=== PATIENT | female | born 1960 | race Caucasian/White ===

== ENCOUNTER 2017-09-20 15:31 | Emergency (ER) | payer OTHER ==
[~2017-09-20] VITALS: Ht 162.6 cm; Wt 68.0 kg
--- NOTE | 2017-09-20 15:43 | ER.PDOC ---
General Chief Complaint: Requesting Medical Care Stated Complaint: KIDNEY PAIN Time seen by MD: 15:43 Source: patient Exam Limitations: no limitations History of Present Illness Allergies: Coded Allergies: No Known Allergies (Unverified , 09/20/17) Home Meds No Active Prescriptions or Reported Meds Physical Exam General Appearance: No Apparent Distress, WD/WN EENT: eyes nml inspection, nml ENT inspection, pharynx nml Neck: nml inspection, non-tender Cardiovascular/Respiratory: Regular Rate, Rhythm, No M/R/G, Normal Peripheral Pulses, No JVD, Normal Breath Sounds, No Respiratory Distress Abdomen: Normal Bowel Sounds, Non Tender, Soft, No Organomegaly, No Pulsatile Mass Back: nml inspection Extremities: Normal Range of Motion, Non-Tender, Normal Inspection, No Pedal Edema, No Calf Tenderness, Normal Capillary Refill 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, No Motor/Sensory Deficits, Alert, Normal Mood/Affect, Oriented x 3 Skin: Normal Color, Warm/Dry Lymphatic: No Adenopathy Results/Orders Results/Orders Laboratory Tests Test 09/20/17 00:00 09/20/17 16:15 09/20/17 16:20 Urine Collection Type UNKNOWN Urine Color YELLOW (YELLOW) Urine Appearance SLIGHTLY HAZY (CLEAR) Urine Bilirubin NEGATIVE MG/DL (NEGATIVE) Urine Ketones NEGATIVE (NEGATIVE) Urine Specific [place] 1.020 (1.005-1.035) Urine pH 6 (5.0-6.0) Urine Protein 15 mg/dL (NEGATIVE) Urine Urobilinogen NORMAL (NEGATIVE) Urine Nitrate NEGATIVE (NEGATIVE) Urine Leukocyte Esterase 500/uL 2+ (NEGATIVE) Urine Blood 50 2+ (NEGATIVE) Urine Glucose NORMAL (NEGATIVE) Urine Comment Sodium Level 144 mmol/L (132-145) Potassium Level 4.1 mmol/L (3.6-5.2) Chloride Level 109.0 mmol/L (96-109) Carbon Dioxide Level 26.5 mmol/L (20.0-32) Anion Gap 12.6 Blood Urea Nitrogen 13 mg/dL (7-18) Creatinine 0.82 mg/dL (0.59-1.40) Estimated GFR () 87.3 (>/=60) BUN/Creatinine Ratio 15.0 Glucose Level 113 mg/dL (70-110) Calcium Level 9.6 mg/dL (8.4-10.5) Total Bilirubin 0.3 mg/dL (0.2-1.0) Aspartate Amino Transf (AST/SGOT) 8 U/L (0-35) Alanine Aminotransferase (ALT/SGPT) 23 U/L (12-78) Alkaline Phosphatase 163 U/L (50-136) Total Protein 7.6 g/dL (6.4-8.2) Albumin 3.8 g/dL (3.4-5.0) Globulin 3.8 Amylase Level 44 U/L (25-115) Lipase 170 U/L (114-286) White Blood Count 11.1 10^3/uL (4.5-11.0) Red Blood Count 5.73 10^6/uL (4.00-5.20) Hemoglobin 16.4 g/dL (12.0-15.0) Hematocrit 48.1 % (36.0-46.0) Mean Corpuscular Volume 83.9 fL (78-100) Mean Corpuscular Hemoglobin 28.6 pg (26-34) Mean Corpuscular Hemoglobin Concent 34.1 g/dL (33-37) Red Cell Distribution Width 13.5 % (11.5-14.5) Platelet Count 256 10^3/uL (150-400) Mean Platelet Volume 9.8 fL (7.8-11.0) Neutrophils (%) (Auto) 61.1 % (41.0-85.0) Lymphocytes (%) (Auto) 30.7 % (24.0-44.0) Monocytes (%) (Auto) 6.3 % (5.0-12.0) Neutrophils # (Auto) 6.8 10^3/uL (1.8-7.7) Lymphocytes # (Auto) 3.4 10^3/uL (1.0-4.8) Monocytes # (Auto) 0.7 10^3/uL (0.3-0.8) Absolute Immature Granulocyte (auto 0.03 10^3 u/L (0-2) Eosinophils % 1.4 % (0.0-5.0) Basophils % 0.2 % (0.0-0.2) Basophils # 0.0 10^3/uL (0.0-0.1) Eosinophil Count 0.2 10^3/uL (0.0-0.2) Percent Immature Gran (Cell Imm) 0.30 % (0.00-0.50) Helicobacter pylori Screen POSITIVE (NEGATIVE) Progress Progress Discussed with [facility], Dr. Prescott is accepting Physician for ED to ED Transfer. EKG/XRAY/CT/US CT Comments: Hydronephrosis, Nephrolithiasis Departure Time of Disposition: 16:50 Disposition: 07 AGAINST MEDICAL ADVICE (Patient advised need to transfer [facility]. Patient aware, and refuses transport and states that she is leaving. Advised that her condition is serious, and could result in , and or organ failure. States she is going to drive herself to [place]. I advised against this as her condition could worsen in route and put herself or others in danger. ) Impression: Primary Impression: UTI (urinary tract infection) Additional Impressions: Hydronephrosis concurrent with and due to calculi of kidney and ureter Fever Condition: Against Medical Advice Referrals: PCP,UNKNOWN (PCP) PRIMARY CARE PROVIDER Scripts No Active Prescriptions or Reported Meds Duration or Time Spent with Pa: 45 Problem Qualifiers Primary Impression: UTI (urinary tract infection) Hematuria presence: with hematuria Additional Impressions: Fever Fever type: unspecified Qualified Codes: R50.9 - Fever, unspecified DAVE BELTRÁN DO September 20, 2017 15:43
[2017-09-20 15:49] VITALS: BP 159/92
--- NOTE | 2017-09-20 16:09 | NUR ---
RAD PT OUT TO CT
[2017-09-20 16:15] LABS: BILIRUBIN,URINE NEGATIVE (NEGATIVE); UROBILINOGEN,URINE NORMAL (NEGATIVE)
[2017-09-20 16:22] LABS: UA COLOR YELLOW (YELLOW)
[2017-09-20 16:23] LABS: APPEARANCE,URINE SLIGHTLY HAZY (CLEAR)
--- NOTE | 2017-09-20 16:25 | NUR ---
CT PT BACK IN ROOM
--- NOTE | 2017-09-20 16:28 | DIREP ---
PROCEDURE:CT ABDOMEN/PELVIS W/O CONTRAST COMPARISON:None. INDICATIONS:urinary symptoms, pain, hx of kidney stones TECHNIQUE:Axial images were created through the abdomen and pelvis without intravenous contrast material. No oral contrast was administered. Sagittal and coronal reconstructions were performed from source images. FINDINGS: LUNG BASES:Normal. No visible pulmonary or pleural disease. LIVER:Normal. No significant liver lesions are identified. BILIARY:The gallbladder is surgically absent. There is no biliary ductal dilatation. PANCREAS:Normal. No lesion, fluid collection, ductal dilatation, or atrophy. SPLEEN:Normal. No enlargement or focal lesion. ADRENALS:Normal. No mass or enlargement. URINARY TRACT:Large calculi on the right measuring up to 21 mm. Smaller calculi on the left. There is moderate right hydronephrosis and hydroureter due to calculi in the right proximal ureter measuring up to 6 mm. AORTA/VASCULAR:There are aortic atherosclerotic calcifications present. No aneurysm. RETROPERITONEUM:Normal. No mass or adenopathy. BOWEL/MESENTERY:Normal, except for mild retained stool in the colon. There is no intestinal obstruction, free fluid, free air or mesenteric inflammatory changes. ABDOMINAL WALL:Normal. No mass or hernia. PELVIC ORGANS:Normal. No visible mass. Pelvic organs appropriate for patient age. BONES:Normal for age. No bony lesion or acute fracture. OTHER:The appendix is normal. Phleboliths in the pelvis. CONCLUSION:Moderate right hydronephrosis and right hydroureter due to calculi in the right proximal ureter measuring up to 6 mm. Additional large calculi in the right kidney measure up to 21 mm. Smaller calculi on the left measure 3-4 mm. Dictated by: Anupam Avila M.D. on 09/20/2017 at 04:21 PM
[2017-09-20 16:29] LABS: BASOPHIL % 0.2 % (0.0-0.2); EOSINOPHIL # 0.2 10^3/uL (0.0-0.2); EOSINOPHIL % 1.4 % (0.0-5.0); HEMOGLOBIN 16.4 g/dL (12.0-15.0); LYMPHOCYTES # 3.4 10^3/uL (1.0-4.8); LYMPHOCYTES % 30.7 % (24.0-44.0); MEAN CELL HGB 28.6 pg (26-34); MEAN CELL HGB CONCENTRATION 34.1 g/dL (33-37); MEAN CORP VOLUME 83.9 fL (78-100); MEAN PLATELET VOLUME 9.8 fL (7.8-11.0); MONOCYTES # 0.7 10^3/uL (0.3-0.8); MONOCYTES % 6.3 % (5.0-12.0); NEUTROPHIL # 6.8 10^3/uL (1.8-7.7); NEUTROPHILS % 61.1 % (41.0-85.0); RED CELL DISTRIBUTION WIDTH 13.5 % (11.5-14.5); WHITE BLOOD CELL 11.1 10^3/uL (4.5-11.0)
[2017-09-20 16:47] LABS: CALCIUM 9.6 mg/dL (8.4-10.5); CARBON DIOXIDE 26.5 mmol/L (20.0-32)
--- NOTE | 2017-09-20 16:51 | NUR ---
VERONICA BELTRÁN WANTS HER TO GO BY EMS. SHE WILL SIGN AMA AND DRIVE HERSELF. SEE NOTES FROM [facility].
[2017-09-20 17:22] VITALS: BP 159/92
== END 2017-09-20 17:06 | disposition left against medical advice (07) ==
LOC: ER 15:31
DX: N13.2 Hydronephrosis with renal and ureteral calculous obstruction (principal); N39.0 Urinary tract infection, site not specified; R31.9 Hematuria, unspecified
CPT/HCPCS: 36415; 74176; 80053; 81002; 82150; 83690; 85025; 85610; 85730; 86677; 87086; 99285